=== PATIENT | female | born 1955 | race Caucasian/White ===

== ENCOUNTER → 2017-04-22 | Outpatient (CLI) | payer BC ==
[~2017-04-22] MED LIST: OMEP-10 GT
--- NOTE | 2017-04-22 17:32 | Diagnostic Imaging Report ---
PA and lateral views of the chest. INDICATION: Cough. FINDINGS: When compared to 02/01/2014, no significant change is seen with minimal chronic-appearing interstitial thickening. No focal infiltrate. No effusion or pneumothorax. The mediastinum and yana appear unremarkable. The heart size is not enlarged. IMPRESSION: No acute process. Dictated by: Dictated on workstation # [id number]
== END ==
LOC: RAD 16:02
PROVIDERS: ATTEND Internal Medicine
DX: R05 Cough (principal)
CPT/HCPCS: 71020

== ENCOUNTER → 2017-07-17 | Outpatient (CLI) | payer BC ==
--- NOTE | 2017-07-17 16:11 | Diagnostic Imaging Report ---
INDICATION: Digital mammogram bilateral screening. This study was compared to the prior exams of 05/07/16 and 02/16/15. At this time, there are no current complaints. The current study was also evaluated with a Computer Aided Detection (CAD) system. FINDINGS: The fibroglandular tissue in both breasts is heterogeneously dense. This does limit the sensitivity of this exam. Overall, there does not appear to have been any significant change when compared to the prior study. No primary or secondary sign of malignancy is noted. IMPRESSION: There is no radiographic evidence for malignancy. ACR BI-RADS Category 1: Negative. Result letter will be mailed to the patient. Note: At least 10% of breast cancer is not imaged by mammography. Dictated by: Dictated on workstation # [id number]
== END ==
LOC: RAD 07:33
PROVIDERS: ATTEND Nurse Practitioner
DX: Z12.31 Encounter for screening mammogram for malignant neoplasm of breast (principal)
CPT/HCPCS: 77067

== ENCOUNTER → 2018-07-25 | Outpatient (CLI) | payer BC ==
--- NOTE | 2018-07-25 11:33 | Diagnostic Imaging Report ---
INDICATION: Routine screening. COMPARISON: 07/17/2017 and 05/07/2016. TECHNIQUE: 2D and 3D bilateral screening mammography was performed with CAD. FINDINGS: Both breasts are heterogeneously dense, limiting the sensitivity of mammography. No dominant mass or malignant appearing microcalcifications are seen. There are benign calcifications. The axillae are unremarkable. IMPRESSION: No mammographic features suspicious for malignancy are identified. ACR BI-RADS Category 2: Benign findings. Result letter will be mailed to the patient. Note: At least 10% of breast cancer is not imaged by mammography. Dictated by: Dictated on workstation # [id number]
== END ==
LOC: RAD 07:46
PROVIDERS: ATTEND Nurse Practitioner
DX: Z12.31 Encounter for screening mammogram for malignant neoplasm of breast (principal)
CPT/HCPCS: 77067

== ENCOUNTER 2018-09-01 08:33 | Outpatient (RCR) | payer BC ==
[2018-09-10] MEDS ORDERED: LORA10TA7 PO (14:09)
== END 2018-11-30 | disposition home or self-care (01) ==
LOC: CARD 08:33
PROVIDERS: ATTEND Internal Medicine
DX: R00.2 Palpitations (principal)
CPT/HCPCS: 93225; 93226

== ENCOUNTER 2018-09-10 05:51 | Outpatient (CLI) | payer BC ==
[~2018-09-10] VITALS: Ht 162.6 cm; Wt 89.8 kg
[2018-09-10] MEDS ORDERED: LORA10TA7 PO (14:09)
== END 2018-09-10 14:13 | disposition home or self-care (01) ==
LOC: PREOP 05:51
PROVIDERS: ATTEND Specialist
DX: Z01.818 Encounter for other preprocedural examination (principal)

== ENCOUNTER 2018-09-12 09:42 | Day surgery (SDC) | payer BC ==
[~2018-09-12] VITALS: Ht 162.6 cm; Wt 89.8 kg
[~2018-09-12 09:42] MED LIST changes: +LORA10TA7 PO
[2018-09-12] MEDS ORDERED: MOXIFLOXACIN OPHTH SOLN 5 MG/ML 0.3 ML SYRINGE OP ONE (09:45)
[2018-09-12] MEDS ORDERED: TIMOLOL MALEATE 0.5% 5 ML (TIMOPTIC) BTL OU PRN (09:45)
[2018-09-12] MEDS ORDERED: POVIDONE (BETADINE) OPHTH SOLN 5% 30 ML OP ONE (09:45)
[2018-09-12] MEDS ORDERED: LIDOCAINE PF 1% 2 ML AMP IR PRN (09:45)
[2018-09-12 09:52] VITALS: BP 122/78
--- OUTSIDE RECORDS SUMMARY | 2018-09-12 09:52 | XMS REPORT | Continuity of Care Document ---
Author Author [facility] Organization [facility] Address Unknown Phone Unavailable Allergies Active Description Code Type Severity Reaction Onset Reported/Identified Relationship to Patient Clinical Status Yes No Known Drug Allergies [id number] Drug Allergy Unknown N/A 08/12/2014 Medications There is no data. Problems Date Dx Coded Attending Type Code Diagnosis Diagnosed By 08/12/2014 Ot 530.81 ESOPHAGEAL REFLUX 08/12/2014 Ot 553.3 DIAPHRAGMATIC HERNIA 08/12/2014 Ot V76.51 SCREEN MAL NEOP-COLON 03/09/2015 BILLY PELLETIER APRN Ot V76.12 05/07/2016 BUDDY SCHMITT DO Ot 788.64 URINARY HESITANCY 05/07/2016 BUDDY SCHMITT DO Ot 793.5 NOSP (ABN) FINDINGS ON RADIOLOGICAL OT 05/07/2016 BUDDY SCHMITT DO Ot V76.12 OTH SCREEN MAMMO-MALIGN NEOPLASM OF VIC 05/07/2016 ELVA VALDZE MD Ot 786.05 SHORTNESS OF BREATH 05/07/2016 Ot V72.84 EXAM PRE- OPERATIVE NOS 05/07/2016 BILLY PELLETIER APRN Ot V76.12 OTH SCREEN MAMMO-MALIGN NEOPLASM OF VIC 05/08/2016 ELVA VALDEZ MD Ot Z12.31 ENCNTR SCREEN MAMMOGRAM FOR MALIGNANT NE 05/23/2016 ELVA VALDEZ MD Ot Z12.31 ENCNTR SCREEN MAMMOGRAM FOR MALIGNANT NE 05/09/2017 ELVA VALDEZ MD Ot R05 COUGH 07/31/2017 BILLY PELLETIER APRN Ot Z12.31 ENCNTR SCREEN MAMMOGRAM FOR MALIGNANT NE 07/27/2018 BILLY PELLETIER APRN Ot Z12.31 ENCNTR SCREEN MAMMOGRAM FOR MALIGNANT NE 08/11/2018 BILLY PELLETIER APRN Ot Z12.31 ENCNTR SCREEN MAMMOGRAM FOR MALIGNANT NE Procedures There is no data. Results There is no data. Encounters ACCT No. Visit Date/Time Discharge Status Pt. Type Provider Facility Loc./Unit Complaint [id number] 09/10/2018 05:51:00 09/10/2018 14:13:00 DIS Outpatient TIM HARGROVE MD [facility] PREOP CATARACT RIGHT [id number] 09/01/2018 08:33:00 09/01/2018 23:59:59 CLS Outpatient ELVA VALDEZ MD [facility] CARD PALPITATIONS [id number] 07/25/2018 09:30:00 07/25/2018 23:59:59 CLS Preadmit TIM HARGROVE MD [facility] SD CATARACT RIGHT EYE [id number] 07/25/2018 07:46:00 07/25/2018 23:59:59 CLS Outpatient BILLY PELLETIER APRN [facility] RAD SCREENING [id number] 07/17/2017 07:33:00 07/17/2017 23:59:59 CLS Outpatient BILLY PELLETIER APRN [facility] RAD SCREENING [id number] 04/22/2017 16:02:00 04/22/2017 23:59:59 CLS Outpatient ELVA VALDEZ MD [facility] RAD R05 [id number] 05/07/2016 07:25:00 05/07/2016 23:59:59 CLS Outpatient ELVA VALDEZ MD [facility] RAD SCREENING [id number] 02/16/2015 14:57:00 02/16/2015 23:59:59 CLS Outpatient BILLY PELLETIER APRN [facility] RAD SCREENING [id number] 02/01/2014 15:56:00 02/01/2014 23:59:59 CLS Outpatient ELVA VALDEZ MD [facility] RAD SOA [id number] 08/24/2013 13:42:00 08/24/2013 23:59:59 CLS Outpatient BUDDY SCHMITT DO [facility] RAD URINARY HESITANCY [id number] 09/26/2018 08:00:00 PEN Preadmit TIM HARGROVE MD [facility] SDC CATARACT LEFT [id number] 09/12/2018 09:42:00 ACT Outpatient DELVIN MIMS, TIM Lino [facility] SDC CATARACT RIGHT [id number] 05/07/2016 07:26:00 Document Registration [id number] 05/07/2016 07:26:00 Document Registration [id number] 05/07/2016 07:26:00 Document Registration [id number] 08/12/2014 12:36:00 Document Registration [id number] 08/11/2014 06:55:00 Document Registration [email or web address] 02/17/2015 07:56:36 ACT Document Registration
[2018-09-12] MEDS: TETRACAINE 0.5% OPHTH SOLN 4 ML BTL (SINGLE DOSE ONLY) OU PRN ×4 (09:55→10:18)
[2018-09-12] MEDS: PHENYLEPHRINE 10% OPHTH (NEO-SYN) 5 ML BTL OU SCH ×3 (10:04→10:18)
[2018-09-12] MEDS: CYCLOPENTOLATE 1% (CYCLOGYL) 2 ML DROPS OP SCH ×3 (10:04→10:18)
[2018-09-12] MEDS ORDERED: MIDAZOLAM 2 MG/2 ML (VERSED) VIAL ONE (10:06)
[2018-09-12 10:49] VITALS: BP 134/83
[2018-09-12] MEDS ORDERED: acetaZOLAMIDE ER 500 MG CAP (DIAMOX SEQUELS) PO ONE (11:30)
--- NOTE | 2018-09-18 07:29 | OPERATIVE REPORT ---
DATE OF SERVICE: 09/12/2018 PREOPERATIVE DIAGNOSIS: Combined cataract, right eye. POSTOPERATIVE DIAGNOSIS: Combined cataract, right eye. PROCEDURE: Phacoemulsification with posterior chamber intraocular lens. ANESTHESIA: Topical with IV sedation. COMPLICATIONS: None. DESCRIPTION OF PROCEDURE: An informed consent was obtained from the patient and placed on the chart. Her right pupil was dilated and anesthetized. She was taken to the operating room and placed in a supine position on the operating table. She was sedated by the anesthesia provider. She was then prepped and draped in the usual sterile manner. A wire lid speculum was placed on the right eye and the operating microscope was moved into position. A paracentesis was made at the left hand position. Preservative-free lidocaine was injected into the anterior chamber followed by viscoelastic. A clear corneal incision was then made in the temporal position with a 2.75 mm keratome. A capsulorrhexis was then made. Hydrodissection was carried out and the nucleus was removed by phacoemulsification. The cortex was then aspirated. The posterior capsule was polished and the anterior chamber was refilled with viscoelastic. An Don model [id number] 18.5 diopters was placed into the capsular bag. The residual viscoelastic was removed. The anterior chamber was inflated with balanced salt saline. Moxifloxacin was injected into the anterior chamber. The wounds were checked and found to be watertight. The wire lid speculum and surgical drapes were removed. The patient tolerated the procedure well and was taken to recovery room in stable condition. Job ID: [id number] DocumentID: [id number] Dictated Date: 09/18/2018 07:02:54 Cargo Vessel Stewardess Date: 09/18/2018 07:28:23 Dictated By: TIM HARGROVE MD
== END 2018-09-12 10:49 | disposition home or self-care (01) ==
LOC: SDC 09:42
PROVIDERS: ATTEND Specialist
DX: H25.811 Combined forms of age-related cataract, right eye (principal)

== ENCOUNTER 2018-09-24 05:40 | Outpatient (CLI) | payer BC | END 2018-09-24 11:37 | disposition home or self-care (01) | LOC: PREOP 05:40 | PROVIDERS: ATTEND Specialist | DX: Z01.818 Encounter for other preprocedural examination (principal) ==

== ENCOUNTER 2018-09-26 06:25 | Day surgery (SDC) | payer BC ==
[~2018-09-26] VITALS: Ht 162.6 cm; Wt 89.8 kg
[2018-09-26 06:25] VITALS: BP 130/73
--- OUTSIDE RECORDS SUMMARY | 2018-09-26 06:29 | XMS REPORT | Continuity of Care Document ---
Author Organization Unknown Address Unknown Allergies Active Description Code Type Severity Reaction Onset Reported/Identified Relationship to Patient Clinical Status Yes No Known Drug Allergies [id number] Drug Allergy Unknown N/A 08/12/2014 Medications There is no data. Problems Date Dx Coded Attending Type Code Diagnosis Diagnosed By 08/12/2014 Ot 530.81 ESOPHAGEAL REFLUX 08/12/2014 Ot 553.3 DIAPHRAGMATIC HERNIA 08/12/2014 Ot V76.51 SCREEN MAL NEOP-COLON 03/09/2015 BILLY PELLETIRE APRN Ot V76.12 05/07/2016 BUDDY SCHMITT DO Ot 788.64 URINARY HESITANCY 05/07/2016 BUDDY SCHMITT DO Ot 793.5 NOSP (ABN) FINDINGS ON RADIOLOGICAL OT 05/07/2016 BUDDY SCHMITT DO Ot V76.12 OTH SCREEN MAMMO-MALIGN NEOPLASM OF VIC 05/07/2016 ELVA VALDEZ MD Ot 786.05 SHORTNESS OF BREATH 05/07/2016 [...] Z12.31 ENCNTR SCREEN MAMMOGRAM FOR MALIGNANT NE 09/10/2018 DELVIN MIMS, TIM Quinonez Ot Z01.818 ENCOUNTER FOR OTHER PREPROCEDURAL EXAMIN 09/12/2018 TIM HARGROVE MD Ot H25.11 AGE-RELATED NUCLEAR CATARACT, RIGHT EYE 09/18/2018 TIM HARGROVE MD Ot H25.811 COMBINED FORMS OF AGE-RELATED CATARACT, 09/20/2018 TIM HARGRVOE MD Ot H25.811 COMBINED FORMS OF AGE-RELATED CATARACT, 09/24/2018 TIM HARGROVE MD Ot Z01.818 ENCOUNTER FOR OTHER PREPROCEDURAL EXAMIN 09/24/2018 ELVA VALDEZ MD Ot R00.2 PALPITATIONS Procedures There is no data. Results There is no data. Encounters ACCT No. Visit Date/Time Discharge Status Pt. Type Provider Facility Loc./Unit Complaint [id number] 09/24/2018 05:40:00 09/24/2018 11:37:00 DIS Outpatient TIM HARGROVE MD [facility] PREOP CATARACT LEFT EYE [id number] 09/12/2018 09:42:00 09/12/2018 10:49:00 DIS Outpatient TIM HARGROVE MD [facility] CATARACT RIGHT [id number] 09/10/2018 05:51:00 09/10/2018 14:13:00 DIS Outpatient TIM HARGROVE MD [facility] PREOP CATARACT RIGHT [id number] 09/01/2018 08:33:00 09/01/2018 23:59:59 CLS Outpatient ELVA VALDEZ MD [facility] CARD PALPITATIONS [id number] 07/25/2018 09:30:00 07/25/2018 23:59:59 CLS Preadmit TIM HARGROVE MD [facility] CATARACT RIGHT EYE [id number] 07/25/2018 07:46:00 07/25/2018 23:59:59 CLS Outpatient BILLY PELLETIER APRN [facility] RAD SCREENING [id number] 07/17/2017 07:33:00 07/17/2017 23:59:59 CLS Outpatient BILLY PELLETIER APRN [facility] RAD SCREENING [id number] 04/22/2017 16:02:00 04/22/2017 23:59:59 CLS Outpatient ELVA VALDEZ MD [facility] RAD R05 [id number] 05/07/2016 07:25:00 05/07/2016 23:59:59 CLS Outpatient ELVA VALDEZ MD [facility] RAD SCREENING [id number] 02/16/2015 14:57:00 02/16/2015 23:59:59 CLS Outpatient BILLY PELLETIER APRN [facility] RAD SCREENING [id number] 02/01/2014 15:56:00 02/01/2014 23:59:59 CLS Outpatient ELVA VALDEZ MD [facility] RAD SOA [id number] 08/24/2013 13:42:00 08/24/2013 23:59:59 CLS Outpatient BUDDY SCHMITT DO [facility] RAD URINARY HESITANCY [id number] 09/26/2018 06:25:00 ACT Outpatient TIM HARGROVE MD [facility] SDC CATARACT LEFT [id number] 05/07/2016 07:26:00 Document Registration [id number] 05/07/2016 07:26:00 Document Registration [id number] 05/07/2016 07:26:00 Document Registration [id number] 08/12/2014 12:36:00 Document Registration [id number] 08/11/2014 06:55:00 Document Registration [email or web address] 02/17/2015 07:56:36 ACT Document Registration
[2018-09-26] MEDS ORDERED: LIDOCAINE PF 1% 2 ML AMP IR PRN (06:30)
[2018-09-26] MEDS ORDERED: MOXIFLOXACIN OPHTH SOLN 5 MG/ML 0.3 ML SYRINGE OP ONE (06:30)
[2018-09-26] MEDS ORDERED: TIMOLOL MALEATE 0.5% 5 ML (TIMOPTIC) BTL OU PRN (06:30)
[2018-09-26] MEDS ORDERED: POVIDONE (BETADINE) OPHTH SOLN 5% 30 ML OP ONE (06:30)
[2018-09-26] MEDS: TETRACAINE 0.5% OPHTH SOLN 4 ML BTL (SINGLE DOSE ONLY) OU PRN ×4 (06:41→07:11)
[2018-09-26] MEDS: CYCLOPENTOLATE 1% (CYCLOGYL) 2 ML DROPS OP SCH ×3 (06:54→07:11)
[2018-09-26] MEDS: PHENYLEPHRINE 10% OPHTH (NEO-SYN) 5 ML BTL OU SCH ×3 (06:54→07:11)
[2018-09-26] MEDS ORDERED: MIDAZOLAM 2 MG/2 ML (VERSED) VIAL ONE (07:08)
--- NOTE | 2018-09-26 07:17 | Ophthalmologist Pre-Op Note ---
Pre-Operative Progress Note H&P Reviewed The H&P was reviewed, patient examined and no changes noted. Date H&P Reviewed: Sep 26, 2018 Time H&P Reviewed: 07:17 Pre-Op Dx Cataract, Left Eye TIM HARGROVE MD Sep 26, 2018 07:17
--- NOTE | 2018-09-26 07:37 | Ophthalmology Operative Report ---
Cataract removal/placement IOL PREOPERATIVE DIAGNOSIS: Cataract Left Eye POSTOPERATIVE DIAGNOSIS: Cataract Left Eye PROCEDURE: Cataract removal and placement of posterior chamber implant, left eye SURGEON: Peter Hargrove ANESTHESIA: Topical with sedation COMPLICATIONS: None ESTIMATED BLOOD LOSS: Minimal DESCRIPTION OF PROCEDURE: After proper informed consent was obtained, the patient, a 63 female, was taken to the Operating Room and the left eye was anesthetized with tetracaine. The left eye was then prepped and draped in the usual manner. A wire lid speculum was placed. A paracentesis was made at the left hand position. Preservative free lidocaine was injected into the anterior chamber followed by viscoelastic. A clear corneal incision was made in the temporal position. A capsulorrhexis was preformed and the central nuclear and cortical material were removed. The posterior capsule was polished and an Don 21.5 AU00T0 was placed into the capsular bag. The residual viscoelastic was aspirated and balanced saline solution was injected into the anterior chamber. Moxifloxacin was injected into the anterior chamber. The wound was checked and found to be water tight. The patient tolerated the procedure well without complications. PETER HARGROVE MD Sep 26, 2018 07:37
[2018-09-26 07:40] VITALS: BP 128/87
[2018-09-26] MEDS ORDERED: acetaZOLAMIDE ER 500 MG CAP (DIAMOX SEQUELS) PO ONE (08:00)
--- NOTE | 2018-09-26 08:34 | Anesthesia-General Post-Op ---
MAC Patient Condition Mental Status/LOC: Same as Preop Cardiovascular: Satisfactory Nausea/Vomiting: Absent Respiratory: Satisfactory Pain: Controlled Complications: Absent Post Op Complications Complications None Follow Up Care/Instructions Patient Instructions None needed. Anesthesiology Discharge Order Discharge Order Patient is doing well, no complaints, stable vital signs, no apparent adverse anesthesia problems. No complications reported per nursing. REYNALDO WHITMAN CRNA Sep 26, 2018 08:34
== END 2018-09-26 07:42 | disposition home or self-care (01) ==
LOC: SDC 06:25
PROVIDERS: ATTEND Specialist
DX: H25.12 Age-related nuclear cataract, left eye (principal)

== ENCOUNTER → 2019-07-31 | Outpatient (CLI) | payer BC ==
--- NOTE | 2019-07-31 13:20 | Diagnostic Imaging Report ---
EXAMINATION: Digital mammogram bilateral screening. The current study was also evaluated with a Computer Aided Detection (CAD) system. 3-D tomosynthesis was also performed and reviewed. INDICATION: Screening. This study was compared to the prior exams of 07/25/2018, 07/17/2017, and 08/24/2013. At this time, there are no current complaints. FINDINGS: The fibroglandular tissue in both breasts is heterogeneously dense. This does limit the sensitivity of this exam. Overall, there does not appear to have been any significant change when compared to the prior study. No primary or secondary sign of malignancy is noted. 3D tomographic images fail to show any sign of malignancy. IMPRESSION: There is no radiographic evidence for malignancy. ACR BI-RADS Category 1: Negative. Result letter will be mailed to the patient. Note: At least 10% of breast cancer is not imaged by mammography. Dictated by: Dictated on workstation # [id number]
== END ==
LOC: RAD 07:13
PROVIDERS: ATTEND Internal Medicine
DX: Z12.31 Encounter for screening mammogram for malignant neoplasm of breast (principal)
CPT/HCPCS: 77067

== ENCOUNTER → 2020-08-01 | Outpatient (CLI) | payer BC, OTHER ==
--- NOTE | 2020-08-01 12:13 | Diagnostic Imaging Report ---
INDICATION: Routine screening. Comparison is made with prior mammogram 07/31/2019 and 07/25/2018. 2-D and 3-D bilateral screening mammography was performed with CAD. Both breasts are heterogeneously dense, limiting the sensitivity of mammography. There are benign calcifications. There is a nodular density in the central left breast best seen on the MLO view at the nipple line. No definite correlate on the CC view is identified. Additional views are recommended. No malignant-appearing microcalcifications are identified. Axillae are unremarkable. IMPRESSION: BI-RADS 0 Left breast density. Additional views are recommended. ACR BI-RADS Category 0: Incomplete. (Needs additional imaging evaluation). Result letter will be mailed to the patient. Note: At least 10% of breast cancer is not imaged by mammography. Dictated by: Dictated on workstation # [id number]
== END ==
LOC: RAD 08:25
PROVIDERS: ATTEND Internal Medicine
DX: Z12.31 Encounter for screening mammogram for malignant neoplasm of breast (principal)
CPT/HCPCS: 77063; 77067

== ENCOUNTER → 2020-08-11 | Outpatient (CLI) | payer OTHER ==
--- NOTE | 2020-08-11 09:25 | Diagnostic Imaging Report ---
Indication: Left breast density. Patient presents for additional views. Correlation is made with screening study from 08/01/2020. Unilateral left 2-D and 3-D diagnostic mammography was performed. This includes spot compression ML and conventional 90 degrees lateral view. Area of the nodular density resolves with additional views and most likely represent superimposed tissue. No mass is detected. IMPRESSION: BI-RADS Category 1 Additional views fail to demonstrate a discrete mass. The patient may return to routine annual screening mammography. ACR BI-RADS Category 1: Negative. Result letter will be mailed to the patient. Note: At least 10% of breast cancer is not imaged by mammography. Dictated by: Dictated on workstation # [id number]
== END ==
LOC: RAD 09:45
PROVIDERS: ATTEND Internal Medicine
DX: R92.2 Inconclusive mammogram (principal)
CPT/HCPCS: 77065; G0279

== ENCOUNTER 2020-12-28 16:18 | Outpatient (CLI) | payer OTHER ==
[~2020-12-28] VITALS: Ht 162 cm
[2020-12-28 16:10] VITALS: BP 142/78
[2020-12-28] MEDS ORDERED: NS IV 1000 ML 1,000 ML IV ONE (16:45)
== END 2020-12-28 17:43 ==
LOC: SDC 16:18
PROVIDERS: ATTEND Nurse Practitioner Family
DX: E87.1 Hypo-osmolality and hyponatremia (principal)

== ENCOUNTER 2020-12-29 14:30 | Outpatient (CLI) | payer OTHER ==
[~2020-12-29] VITALS: Ht 162 cm
[2020-12-29] MEDS ORDERED: NS IV 1000 ML 1,000 ML IV ONE (15:30)
[2020-12-29 15:40] VITALS: BP 141/72
== END 2020-12-29 16:35 ==
LOC: SDC 14:30
PROVIDERS: ATTEND Nurse Practitioner Family
DX: E87.1 Hypo-osmolality and hyponatremia (principal)
CPT/HCPCS: 96360

== ENCOUNTER → 2021-08-16 | Outpatient (CLI) | payer OTHER ==
--- NOTE | 2021-08-16 08:39 | Diagnostic Imaging Report ---
INDICATION: Routine screening. Comparison is made with prior mammogram from 08/01/2020 and 07/31/2019. 2-D and 3-D bilateral screening mammography was performed with CAD. Both breasts are heterogeneously dense, limiting the sensitivity of mammography. There are scattered benign calcifications in both breasts. No dominant mass or malignant-appearing microcalcifications are seen. Axillae are unremarkable. IMPRESSION: No mammographic features suspicious for malignancy are identified. ACR BI-RADS Category 2: Benign findings. Result letter will be mailed to the patient. Note: At least 10% of breast cancer is not imaged by mammography. BI-RADS Category 2 Dictated by: Dictated on workstation # [id number]
== END ==
LOC: RAD 08:00
PROVIDERS: ATTEND Internal Medicine
DX: Z12.31 Encounter for screening mammogram for malignant neoplasm of breast (principal)
CPT/HCPCS: 77063; 77067

== ENCOUNTER → 2022-07-10 | Outpatient (CLI) | payer MEDICARE, OTHER ==
--- NOTE | 2022-07-10 17:00 | Diagnostic Imaging Report ---
EXAMINATION: Chest 2 view HISTORY: Pneumonia COMPARISON: 04/22/2017 FINDINGS: The lungs are clear without edema or pneumonia. No pleural effusion or pneumothorax. Heart size is normal. IMPRESSION: 1. Clear lungs. Dictated by: Dictated on workstation # [id number]
== END ==
LOC: RAD 11:28
PROVIDERS: ATTEND Nurse Practitioner Family
DX: J18.9 Pneumonia, unspecified organism (principal)
CPT/HCPCS: 71046

== ENCOUNTER → 2022-08-21 | Outpatient (CLI) | payer MEDICARE, OTHER ==
--- NOTE | 2022-08-21 15:05 | Diagnostic Imaging Report ---
INDICATION: Routine screening. COMPARISON: 08/16/2021 and 08/01/2020. TECHNIQUE: 2D and 3D bilateral screening mammography was performed with CAD. FINDINGS: Both breasts are heterogeneously dense, limiting the sensitivity of mammography. The parenchymal pattern is stable. No mass or malignant-appearing microcalcifications are seen. The axillae are unremarkable. IMPRESSION: No mammographic features suspicious for malignancy are identified. ACR BI-RADS Category 1: Negative. Result letter will be mailed to the patient. Note: At least 10% of breast cancer is not imaged by mammography. Dictated by: Dictated on workstation # [id number]
--- NOTE | 2022-08-21 17:08 | Diagnostic Imaging Report ---
INDICATION: Postmenopausal female COMPARISON: None FINDINGS: AP Spine L2-L4: [BMD (g/cm2): 0.886] [T-Score: -2.6] [Z-Score: -1.9] [BMD Previous: NA] [BMD % Change: NA] LT Hip Neck: [BMD (g/cm2): 0.758] [T-Score: -2.0] [Z-Score: -1.1] LT Hip Total: [BMD (g/cm2):0.855] [T-Score:-1.2] [Z-Score: -0.6] [BMD Previous: NA] [BMD % Change: NA] RT Hip Neck: [BMD (g/cm2):0.744] [T-Score:-2.1] [Z-Score:-1.2] RT Hip Total: [BMD (g/cm2):0.824] [T-score:-1.5] [Z-Score:-0.9] [BMD Previous:NA] [BMD % Change:NA] *Indicates significant change from prior examination based on 95% confidence level. World Health Organization criteria for BMD interpretation classify patients as Normal (T-score at or above -1.0), Osteopenic (T-score between -1.0 and -2.5) or Osteoporotic (T-score at or below -2.5). LIMITATIONS AND MODIFICATION: None. FRACTURE RISK (FRAX SCORE): The ten year probability of (%): Major Osteoporotic Fracture: [NA] Hip Fracture: [NA] IMPRESSION: 1. Osteoporosis. 2. Baseline examination. 3. See below National Osteoporosis Foundation guidelines on when to potentially initiate pharmacologic therapy. Based on the National Osteoporosis Foundation Guidelines, pharmacologic treatment should be initiated in any of the following, unless clinical conditions suggest otherwise: * Any patient with prior fragility fracture of the hip or vertebrae. A spine fracture indicates 5X risk for subsequent spine fracture and 2X risk for subsequent hip fracture. * Osteoporosis (T-score <-2.5). * Postmenopausal women and men age 50 and older with low bone mass/osteopenia (T-score between -1.0 and -2.5) by DXA and 10-year major osteoporotic fracture greater than 20% or a 10-year probability of hip fracture greater than 3%. These fracture risks are supplied above in the FRAX score, if applicable. * Clinician judgement and/or patient preferences may indicate treatment for people with 10-year fracture probabilities above or below these levels. Dictated by: Dictated on workstation # [id number]
== END ==
LOC: RAD 10:00
PROVIDERS: ATTEND Internal Medicine
DX: Z12.31 Encounter for screening mammogram for malignant neoplasm of breast (principal); M81.0 Age-related osteoporosis without current pathological fracture; Z78.0 Asymptomatic menopausal state
CPT/HCPCS: 77063; 77067; 77080

== ENCOUNTER → 2022-11-17 | Outpatient (CLI) | payer MEDICARE, OTHER ==
[2022-11-17 15:55] LABS: HEMATOCRIT 36 % (35-52); MEAN CORPUSCULAR HEMOGLOBIN 33 pg (25-34); MEAN CORPUSCULAR HGB CONC 36 g/dL (32-36); MEAN CORPUSCULAR VOLUME 93 fL (80-99); MEAN PLATELET VOLUME 9.3 fL (9.0-12.2); PLATELET COUNT 339 10^3/uL (130-400); WHITE BLOOD COUNT 5.7 10^3/uL (4.3-11.0)
[2022-11-17 16:03] LABS: ALBUMIN 4.1 GM/DL (3.2-4.5); CHLORIDE 101 MMOL/L (98-107)
[2022-11-17 16:04] LABS: POTASSIUM 4.3 MMOL/L (3.6-5.0); SODIUM 133 MMOL/L (135-145)
[2022-11-17 16:05] LABS: CALCIUM 9.6 MG/DL (8.5-10.1)
[2022-11-17 16:06] LABS: GLUCOSE 97 MG/DL (70-105); TOTAL PROTEIN 6.5 GM/DL (6.4-8.2)
[2022-11-17 16:07] LABS: CARBON DIOXIDE 24 MMOL/L (21-32)
[2022-11-17 16:08] LABS: BILIRUBIN,TOTAL 0.7 MG/DL (0.1-1.0)
[2022-11-17 16:09] LABS: ALKALINE PHOSPHATASE 72 U/L (40-136); CREATININE SERUM 0.77 MG/DL (0.60-1.30); GFR ESTIMATED 86
[2022-11-17 16:10] LABS: BUN/CREATININE RATIO 14
[2022-11-17 16:12] LABS: ALANINE AMINOTRANSFERASE 21 U/L (0-55)
[2022-11-17 16:19] LABS: CREATINE KINASE MB 1.2 NG/ML (<6.6)
== END ==
LOC: LAB 15:36
PROVIDERS: ATTEND Nurse Practitioner Family
DX: E87.1 Hypo-osmolality and hyponatremia (principal); R42 Dizziness and giddiness; R07.9 Chest pain, unspecified; R00.2 Palpitations; R06.02 Shortness of breath
CPT/HCPCS: 36415; 80053; 82553; 82728; 83874; 83880; 84484; 85027

== ENCOUNTER → 2023-04-03 | Outpatient (CLI) | payer MEDICARE, OTHER ==
[~2023-04-03] VITALS: Ht 162 cm; Wt 83.0 kg
[~2023-04-03] MED LIST changes: +CATHETER FLUSH 10 ML SYR IVP PRN
[2023-04-03 09:35] VITALS: BP 156/96
--- NOTE | 2023-04-03 14:53 | Cardiology Stress Test Report ---
Stress Test Report Date of Procedure/Referring: Date of Procedure: Apr 03, 2023 PCP Luz Maria Nettles Aprn Admitting Physician Admitting Physician: Attending Physician: Josh Celaya MD Baseline Heart Rate: 80 Baseline Blood Pressure: Blood Pressure Systolic: 156 Blood Pressure Diastolic: 96 Vital Signs Date Time Temp Pulse Resp B/P (MAP) Pulse Ox O2 Delivery O2 Flow Rate FiO2 04/03/23 09:35 80 156/96 (116) 99 Baseline Vital Signs Vital Signs Date Time Temp Pulse Resp B/P (MAP) Pulse Ox O2 Delivery O2 Flow Rate FiO2 04/03/23 09:35 80 156/96 (116) 99 Baseline EKG: Baseline EKG: NSR Summary: After explaining the procedure and details to the patient, she signed the consent and was brought to the stress nuclear laboratory. Patient exercised on standard Adryan protocol, EKG, heart rate and blood pressure were monitored continuously, resting and stress doses of radio tracer were injected, imaging was acquired and reviewed in the short axis, horizontal long axis and vertical long axis views Patient was able to exercise for a total of 7 minutes on Adryan protocol, METs 8.5 Maximum heart rate 145 Maximum blood pressure 169/91 Stress EKG, Minimal nondiagnostic changes Recovery EKG, Return to baseline TID: 0.88 SSS: 1 SDS: 1 EF: 70 Conclusion: Good exercise tolerance for 7 minutes on standard Adryan protocol, 8.5 METS achieving 93% of maximal expected heart rate Appropriate heart rate and blood pressure response to exercise return to baseline during recovery No significant ischemia or infarction noted on SPECT images Minimal nondiagnostic EKG changes with exercise return to baseline during recovery Normal LV size with ejection fraction 70% CC Luz Maria Nettles APRN Copy Copies To 1: ELVA VALDEZ MD, BASHAR J MD Apr 03, 2023 14:53
== END ==
LOC: CARD 08:15
PROVIDERS: ATTEND Internal Medicine Cardiovascular Disease
DX: I34.0 Nonrheumatic mitral (valve) insufficiency (principal)
CPT/HCPCS: 78452; 93017; A9502; C8929; 93306